=== PATIENT | female | born 1970 ===

== ENCOUNTER 2017-12-03 07:13 | Day surgery (SDC) | payer OTHER ==
[2017-12-02 12:52] VITALS: BMI 40.3
[2017-12-03] MEDS ORDERED: Propofol 10 mg/ml Inj (20 ML) ONE (09:02)
[2017-12-03] MEDS ORDERED: Lidocaine Hydrochloride 5 ML INJ ONE (09:03)
[2017-12-03] MEDS ORDERED: Lactated Ringer's 1,000 ML IV ONE (09:05)
[2017-12-03] MEDS ORDERED: cefOXitin IV 1 gm in Dextrose 2 GM/100 ML BAG IVPB ONE (09:07)
[2017-12-03] MEDS ORDERED: Midazolam 2 MG/2 ML VIAL ONE (09:12)
[2017-12-03] MEDS ORDERED: HYDROmorphone 1 mg/ml ISec IVP PRN (09:53)
[2017-12-03] MEDS ORDERED: HYDROmorphone 1 mg/ml ISec ONE (10:21)
[2017-12-03 11:40] VITALS: RESP 18
[2017-12-03 12:30] VITALS: BP 133/78; PULSE 90; TEMP 98; O2SAT 97
--- NOTE | 2017-12-03 18:31 | PCM.SURG1 ---
Surgeon's Initial Post Op Note - Surgeon's Notes Surgeon: dr pastor [employer] Beverage Server: none Type of Anesthesia: General LMA Anesthesia Administered By: dr frederick Pre-Operative Diagnosis: 47 yrwith pmb /fibroid uterus Operative Findings: see thge op reort Post-Operative Diagnosis: same Operation Performed: myaure d&c,hysterscopy Specimen/Specimens Removed: ecc. emc. submusal fibroid Estimated Blood Loss: EBL {In ML}: 20 Blood Products Given: N/A Drains Used: No Drains Post-Op Condition: Good Date of Surgery/Procedure: 12/03/17 Time of Surgery/Procedure: 10:35
--- NOTE | 2017-12-04 05:15 | OP ---
PROCEDURE DATE: PREOPERATIVE DIAGNOSIS: A 47-year-old 2, para 2 with submucosal fibroid and postmenopausal bleeding. POSTOPERATIVE DIAGNOSIS: A 47-year-old 2, para 2 with submucosal fibroid and postmenopausal bleeding. SURGEON: Bert Barron MD MACHINE STACKER: None. TYPE OF ANESTHESIA: General. ANESTHESIOLOGIST: Dr. Thomas. COMPLICATIONS: None. PROCEDURE PERFORMED: MyoSure, D and C, cystoscopy, and myomectomy. ESTIMATED BLOOD LOSS: 20 mL. DESCRIPTION OF PROCEDURE: After informed consent was obtained, the patient was brought to the operating room, placed on the table where general anesthesia was given. Once the anesthesia was found to be adequate, the patient was prepped and draped in the normal sterile fashion. Examination found the uterus to be . No pelvic or adnexal masses. Anterior lip of the cervix was grasped with a tenaculum, gentle dilatation of the cervix was done. There was a submucosal fibroid found on the anterior wall of the uterus. Pictures were taken, then the MyoSure was used to take out the fibroid, was sent to the pathology. After that, sharp curettage of the uterus was done and ECC was done and sent to the pathology. After that, tenaculum was taken out from anterior lip of the cervix. The patient tolerated the procedure well. Lap, sponge, and instrument counts were correct x2. EBL was 20 mL and deficit was 550. Bert Barron MD
== END 2017-12-03 12:55 | disposition home or self-care (01) ==
LOC: C.SDS 07:13
PROVIDERS: ATTEND Obstetrics & Gynecology
DX: D25.0 Submucous leiomyoma of uterus (principal); N71.1 Chronic inflammatory disease of uterus; N95.0 Postmenopausal bleeding
CPT/HCPCS: 58561; 82948; 88305; J0694; J1170; J1885; J2250; J2405; J2704; J2765; J3010; J7120